=== PATIENT | female | born 1965 | race Caucasian/White ===

== ENCOUNTER → 2018-05-31 | Outpatient (CLI) | payer OTHER ==
[~2018-05-31] MED LIST: REGADENOSON 0.4 MG/5 ML SYRINGE ONE
== END | disposition home or self-care (01) ==
LOC: CFH 12:16 → EDSEX 12:30
PROVIDERS: ATTEND Internal Medicine Cardiovascular Disease
DX: I25.9 Chronic ischemic heart disease, unspecified (principal); I10 Essential (primary) hypertension
CPT/HCPCS: 78452; 93017; 93306; A9502; J2785

== ENCOUNTER 2018-06-08 12:23 | Observation (INO) | payer OTHER ==
[~2018-06-08] VITALS: Ht 172.7 cm; Wt 95.0 kg
[2018-06-08] MEDS ORDERED: SODIUM CHLORIDE 0.9% 1,000 ML IV ONE (13:51)
[2018-06-08] MEDS ORDERED: ASPIRIN 325 MG TABLET EC PO ONE (14:00)
[2018-06-08] MEDS ORDERED: ESTR1TAB15 PO (14:15)
[2018-06-08] MEDS ORDERED: LEVO137T2 PO (14:15)
[2018-06-08] MEDS ORDERED: AMLO-150 PO (14:15)
[2018-06-08 14:18] LABS: BASOPHILS # (AUTO) 0.02 x10^3/uL (0-0.1); BASOPHILS % (AUTO) 0 % (0-1); EOSINOPHILS # (AUTO) 0.06 x10^3/uL (0-0.4); EOSINOPHILS % (AUTO) 1 % (1-7); LYMPHOCYTES # (AUTO) 1.67 x10^3/uL (1-3.4); LYMPHOCYTES % (AUTO) 38 % (22-44); MD NO; MEAN CORPUSCULAR HEMOGLOBIN 30.7 pg (27.0-34.8); MEAN CORPUSCULAR HGB CONC 33.7 g/dL (32.4-35.8); MEAN CORPUSCULAR VOLUME 90.9 fL (80-100); MEAN PLATELET VOLUME 6.9 fL (7.4-10.4); MONOCYTES # (AUTO) 0.23 x10^3/uL (0.2-0.8); MONOCYTES % (AUTO) 5 % (2-9); NEUTROPHILS # (AUTO) 2.46 x10^3/uL (1.8-6.8); NEUTROPHILS % (AUTO) 56 % (42-75); PLATELET COUNT 243 x10^3/uL (130-400); RED CELL DISTRIBUTION WIDTH 13.4 % (9.6-15.2)
[2018-06-08 14:29] LABS: ANION GAP 5 mmol/L (5-15); CHLORIDE 108 mmol/L (98-107)
[2018-06-08] MEDS ORDERED: LIDOCAINE 1%, 20ML ONE (17:37)
[2018-06-08] MEDS ORDERED: FENTANYL PF 100 MCG/2ML ONE (17:37)
[2018-06-08] MEDS ORDERED: MIDAZOLAM 1 MG/ML, 2ML ONE ×2 (17:37→18:18)
[2018-06-08] MEDS ORDERED: HEPARIN 1,000 UNITS/ML, 10ML ONE (17:38)
[2018-06-08] MEDS ORDERED: VERAPAMIL 2.5 MG/ML, 2ML ONE (17:39)
[2018-06-08] MEDS: SODIUM CHLORIDE 0.9% 1,000 ML IV SCH (20:00)
[2018-06-08] MEDS ORDERED: MORPHINE SULFATE 4 MG/ML, 1ML IVPush PRN ×3 (20:30→23:00)
[2018-06-08 21:31] VITALS: BP 120/81
[2018-06-08] MEDS ORDERED: HYDROcodone/APAP 5/325 TABLET PO PRN (22:30)
[2018-06-09 03:24] VITALS: BP 127/84
[2018-06-09] MEDS: SODIUM CHLORIDE 0.9% 1,000 ML IV SCH (04:04)
[2018-06-09 08:28] VITALS: BP 115/78
== END 2018-06-09 11:15 | disposition home or self-care (01) ==
LOC: CACL 12:23 → 5SO 18:40 → CACL 22:39
PROVIDERS: ADMIT Internal Medicine Cardiovascular Disease; ATTEND Internal Medicine Cardiovascular Disease
DX: I25.10 Atherosclerotic heart disease of native coronary artery without angina pectoris (principal); I10 Essential (primary) hypertension; I25.9 Chronic ischemic heart disease, unspecified
CPT/HCPCS: 36415; 80048; 85025; 93458; 96374; 99156; C1769; C1894; G0378; J1644; J2250; J3010; J3490; Q9967